=== PATIENT | male | born 1980 | race Caucasian/White ===

== ENCOUNTER 2020-01-12 21:42 | Inpatient (IN) | payer SELFPAY ==
[~2020-01-12] VITALS: Ht 185.4 cm; Wt 76.9 kg
[2020-01-12] MEDS ORDERED: VANCOMYCIN 1 G PREMIX 200 ML IV ONE (22:15)
[2020-01-12] MEDS ORDERED: SODIUM CHLORIDE 0.9% 1000ML BAG (SEPSIS BOLUS) IV ONE (22:15)
[2020-01-12] MEDS ORDERED: PIPERACILLIN/TAZ 3.375G PREMIX 50 ML IV ONE (22:15)
[2020-01-12] MEDS ORDERED: LIDOCAINE HCL/EPINEPHRINE 1%-EPI 1:100,000 30 ML VIAL INFIL ONE (23:15)
[2020-01-12 23:25] LABS: CHLORIDE 97 mEq/L (98-107)
[2020-01-12 23:30] LABS: INR 1.1; PROTHROMBIN TIME 11.1 sec (9.6-11.0)
[2020-01-12] MEDS ORDERED: MORPHINE SULFATE 2 MG/ML CPJ (NOT FOR IM USE) IV ONE (23:30)
[2020-01-12] MEDS ORDERED: OLANZAPINE 10 MG/VIAL IM ONE (23:30)
[2020-01-12] MEDS ORDERED: CLONIDINE 0.1MG TABLET PO ONE (23:30)
[2020-01-12] MEDS ORDERED: KETOROLAC 30MG/ML VIAL IV ONE (23:30)
[2020-01-12 23:33] LABS: BASOPHILS % 0.3 % (0.0-2.0); EOSINOPHILS % 1.7 % (0.0-5.0); HEMATOCRIT. 35.1 % (42.0-52.0); HEMOGLOBIN. 11.6 g/dL (14.0-18.0); MEAN CORPUSCULAR HEMOGLOBIN 27.8 pg (28.0-32.0); MEAN PLATELET VOLUME 7.4 fl (7.4-10.4); MONOCYTES % 10.2 % (2.0-8.0); NEUTROPHILS % 77.8 % (40.0-76.0); PLATELET 336 x1000/uL (130-400); RED BLOOD CELL COUNT 4.18 mill/uL (4.7-6.1); RED CELL DISTRIBUTION WIDTH 13.7 % (11.6-14.6)
[2020-01-12 23:46] LABS: CLARITY URINE CLEAR (CLEAR); COLOR URINE YELLOW (YELLOW); KETONES URINE NEGATIVE (NEGATIVE); LEUKOCYTE ESTERASE URINE 3+ (NEGATIVE); NITRITE URINE NEGATIVE (NEGATIVE); OCCULT BLOOD URINE NEGATIVE (NEGATIVE); PROTEIN URINE NEGATIVE (NEGATIVE); SPECIFIC GRAVITY URINE 1.012 (1.005-1.030); UROBILINOGEN URINE 0.2 E.U./dL (0.2-1.0)
[2020-01-12] MEDS ORDERED: LIDOCAINE HCL/EPINEPHRINE 1%-EPI 1:100,000 20 ML VIAL INFIL STA (23:52)
[2020-01-13 00:01] LABS: *AMPHETAMINES SCREEN URINE PRESUMTIVE POSITIVE (NEGATIVE); *BARBITURATES SCREEN URINE NEGATIVE (NEGATIVE); *BENZODIAZEPINES SCREEN URINE NEGATIVE (NEGATIVE); *COCAINE SCREEN URINE NEGATIVE (NEGATIVE); METHADONE URINE SCREEN NEGATIVE (NEGATIVE)
[2020-01-13 00:02] LABS: CANNABINOID URINE SCREEN PRESUMTIVE POSITIVE (NEGATIVE); OPIATES URINE SCREEN PRESUMTIVE POSITIVE (NEGATIVE); PHENCYCLIDINE URINE SCREEN NEGATIVE (NEGATIVE)
[2020-01-13] MEDS ORDERED: GUAIFENESIN 200MG/10ML SUGAR FREE UDC PO PRN (00:45)
[2020-01-13] MEDS ORDERED: ACETAMINOPHEN 650MG SUPP PR PRN ×2 (00:45)
[2020-01-13] MEDS ORDERED: MAGNESIUM/ALUMINUM HYDROXIDE/SIMETHICONE 30ML UDC PO PRN (00:45)
[2020-01-13] MEDS ORDERED: ACETAMINOPHEN 325MG TABLET PO PRN ×2 (00:45)
[2020-01-13] MEDS ORDERED: DIPHENHYDRAMINE 50MG/ML VIAL IV PRN (00:45)
[2020-01-13] MEDS ORDERED: DOCUSATE SODIUM 100MG CAPSULE PO PRN (00:45)
[2020-01-13] MEDS ORDERED: NA PHOS,M-B/NA PHOS,DI-BA ENEMA 118ML PR PRN (00:45)
[2020-01-13] MEDS ORDERED: CLONIDINE 0.1MG TABLET PO PRN (00:45)
[2020-01-13] MEDS ORDERED: ACETAMINOPHEN 650MG/20.3ML UDC GT PRN ×2 (00:45)
[2020-01-13] MEDS ORDERED: ONDANSETRON HCL 4MG/2ML INJ IV PRN (00:45)
[2020-01-13 02:25] VITALS: BP 109/59
[2020-01-13 02:45] VITALS: BP 109/59
[2020-01-13] MEDS ORDERED: CEFTRIAXONE 1 G PREMIX 50 ML IV SCH (06:00)
[2020-01-13 08:00] VITALS: BP 95/50
[2020-01-13] MEDS ORDERED: ENOXAPARIN 40MG/0.4ML SYR SUBCUT SCH (09:00)
[2020-01-13] MEDS ORDERED: VANCOMYCIN 1 G PREMIX 200 ML IV SCH (09:00)
[2020-01-13] MEDS: HYDROCODONE/ACETAMINOPHEN 5/325MG TABLET PO PRN ×2 (09:18→16:40)
[2020-01-13] MEDS: VANCOMYCIN 1250MG in DEXTROSE 5% WATER 250ML IV SCH ×2 (11:56→18:14)
[2020-01-13 16:40] VITALS: BP 109/59
[2020-01-13] MEDS ORDERED: CEPH-569 MT (18:20)
[2020-01-13] MEDS ORDERED: SULF1TAB48 MT (18:21)
== END 2020-01-13 19:20 | disposition left against medical advice (07) | DRG 720 ==
LOC: ER 21:42 → 5WST 01-13 00:26 → EDBEDREQSVC 01-13 00:33 → EDBEDREQ 01-13 00:33 → ENRESERV 01-13 01:51
PROVIDERS: ADMIT Family Medicine; ATTEND Family Medicine
PROC: 0X973ZZ Drainage of Left Upper Extremity, Percutaneous Approach (ICD-10-PCS; principal; 2020-01-12)
DX: A41.9 Sepsis, unspecified organism (principal); L03.113 Cellulitis of right upper limb; L03.114 Cellulitis of left upper limb; L02.414 Cutaneous abscess of left upper limb; F15.10 Other stimulant abuse, uncomplicated; F11.10 Opioid abuse, uncomplicated; Z53.29 Procedure and treatment not carried out because of patient's decision for other reasons; F12.10 Cannabis abuse, uncomplicated; E87.1 Hypo-osmolality and hyponatremia; E44.0 Moderate protein-calorie malnutrition; J44.9 Chronic obstructive pulmonary disease, unspecified; D64.9 Anemia, unspecified; F17.210 Nicotine dependence, cigarettes, uncomplicated; Z88.1 Allergy status to other antibiotic agents; Z68.22 Body mass index [BMI] 22.0-22.9, adult
CPT/HCPCS: 36415; 71045; 80053; 80305; 81003; 83605; 84145; 84484; 85025; 85651; 86140; 93005; 96365; 99291; J0696; J1650; J1885; J2270; J2543; J3370; J3490; J7030; J7060